=== PATIENT | female | born 1960 | race Caucasian/White ===

== ENCOUNTER → 2023-12-08 08:11 | Outpatient (REF) | payer MEDICARE, OTHER, SELFPAY | LOC: WDC 08:11 | PROVIDERS: ATTENDING PHYSICIAN Obstetrics & Gynecology; FAMILY PHYSICIAN Family Medicine | DX: Z12.31 Encounter for screening mammogram for malignant neoplasm of breast (principal) | CPT/HCPCS: 77063; 77067 ==

== ENCOUNTER 2024-01-13 07:59 | Emergency (ER) | payer MEDICARE, OTHER, SELFPAY ==
[2024-01-13 08:03] VITALS: BP 139/96
--- NOTE | 2024-01-13 08:24 | ED.GENMED ---
History of Present Illness
General
Chief Complaint: Abdominal Symptoms
Source: patient
Exam Limitations: none
Time Seen by Provider: 01/13/24 08:09
Travel History
Have you had any contact with someone who has COVID-19?: No
Do you have any symptoms of coronavirus? Fever > 100 degrees, chills, cough, shortness of breath, sore throat, loss of taste or smell, muscle aches, or headache?: No
History of Present Illness
History of Present Illness:
63-year-old female with history of bof-jhreeqq-qrpmaaryv diabetes hypertension hyperlipidemia presents with ongoing symptoms of epigastric abdominal pain and diffuse abdominal cramps associate with nausea and diarrhea. She denies any blood in the
stool. The pain does not radiate to the back. No prior abdominal surgical history. Pain is not worse with eating. She had outpatient labs recently and demonstrated elevated LFTs. No urinary symptoms. She actually has not vomiting but is quite
nauseous. She notes a 15 pound weight loss
Past History
Past History
ED Past Medical History: Arrthythmia (SVT), HTN, Hypercholesterolemia and NIDDM
ED Past Surgical History: Gynecological (tubal ligation) and Other (Lasik surgery, radius surgery, diabetes, pancreatitis, tubal ligation, hyperlipidemia)
Social History
Tobacco: Former smoker
Alcohol: Occasional
Drug: None
Personal:
Living: with family
Employment: Employed
Phy Exam
Physical Exam
Physical Exam:
General: Uncomfortable appearing female no acute respiratory distress
HEENT: Normocephalic atraumatic mucosa dry sclera anicteric
Heart: Regular rate and rhythm no murmurs
Lungs: Clear no wheeze or rales
Abdomen: Soft tender to the epigastric and slightly to the right upper quadrant. No guarding rebound normal bowel sounds no costovertebral angle tenderness
Extremities: No cyanosis or edema
Skin: Warm, no rashes or lesions.
Course
Orders/Labs/Results
Orders:
Orders
01/13/24 08:23
STOOL [C difficile Antigen & Toxins] Urgent
FAINA Source: Feces/Stool
Specimen Description:
Stool Culture Urgent
FAINA Source: Feces/Stool
Specimen Description:
0.9% Sodium Chloride 1000 ml [Nss] 1,000 ml IV BOLUS
Ondansetron Injectable [Zofran] 4 mg IV NOW STA
US Abdomen Complete/Upper Urgent
Comment:
Reason For Exam: epigastric and RUQ pain
01/13/24 08:41
Complete Blood Count/With Diff Urgent
Comprehensive Metabolic Panel Urgent
Lipase Urgent
01/13/24 09:55
CT Abd/pelvis W Iv Cont Urgent
Comment:
Reason For Exam: abdominal pain, diarrhea
01/13/24 10:41
Famotidine [Pepcid] 20 mg IV NOW STA
Mag Hydrox/Al Hydrox/Simeth [Maalox] 30 ml Phenobarb/Hyoscy/Atropine/Scop [] 10 ml Viscous Lidocaine 2% [Xylocaine Viscous Cup] 10 ml PO NOW
01/13/24 10:50
Mag Hydrox/Al Hydrox/Simeth [Maalox] 30 ml .ROUTE .STK-MED ONE
Phenobarb/Hyoscy/Atropine/Scop [] 10 ml .ROUTE .STK-MED ONE
01/13/24 10:51
Viscous Lidocaine 2% [Xylocaine Viscous Cup] 15 ml .ROUTE .STK-MED ONE
Abnormal Lab Results
01/13/24
08:41
MCH 31.1 H pg
(27.0-31.0)
Potassium 3.4 L mmol/L
(3.5-5.1)
Glucose 175 H mg/dl
(70-99)
Calcium 10.4 H mg/dl
(8.4-10.2)
AST 52 H U/L
(14-36)
ALT 68 H U/L
(0-35)
01/13/24 08:41
01/13/24 08:41
Vital Signs
Initial and Last Documented VS:
Initial Vital Signs
Temp Pulse Resp BP Pulse Ox
98.0 F 105 20 139/96 98
01/13/24 08:03 01/13/24 08:03 01/13/24 08:03 01/13/24 08:03 01/13/24 08:03
Last Documented Vital Signs
Temp Pulse Resp BP Pulse Ox
98.0 F 105 20 123/89 97
01/13/24 08:03 01/13/24 08:03 01/13/24 08:03 01/13/24 10:00 01/13/24 10:01
MDM/Problems Addressed
Differential Diagnosis Includes:
Abdominal pain nausea and diarrhea. Consider viral illness versus peptic ulcer disease versus biliary colic versus enteritis.
Will check labs and ultrasound. Treat with fluids Zofran.
*Critical Care Note
Total Time (30-74mins, 75-104mins- exclusive of procedures): Not Applicable
Update Note
Update Note:
Workup here essentially reveals gallstones but no other acute finding. Patient did receive some symptomatic relief after Pepcid and GI cocktail. Ultrasound and CT were both reviewed. No other acute findings noted. Suspect possible gastritis
versus ulcer. Will prescribe Zofran and antacids. Refer to GI for follow-up
ED Attending Note
-
Portions of this chart may have been created with voice recognition software.� Occasional wrong word or��sound alike� substitutions may have occurred due to the inherent limitations of voice recognition software.
Discharge Plan
Departure
Patient Disposition: Home (Routine Discharge)
Date of Disposition: 01/13/24
Time of Disposition: 12:58
Patient with high blood pressure during this ER visit?: No
Discharge Problem:
Abdominal pain
Instructions: Abdominal Pain
Prescriptions:
New
ondansetron 4 mg tablet,disintegrating
4 mg PO Q8H PRN (Reason: nausea and vomiting) Qty: 10 0RF
omeprazole 40 mg capsule,delayed release(DR/EC)
40 mg PO DAILY 14 Days Qty: 14 0RF
No Action
metformin 500 MG tablet
500 mg PO BID
acetaminophen 325 MG tablet
650 mg PO Q4HPRN PRN (Reason: mild pain, fever)
chlorthalidone 25 MG tablet
25 mg PO DAILY
Patient Comments:
Take in the morning with food
amlodipine 5 MG tablet
5 mg PO DAILY
zolpidem 5 MG tablet
5 mg PO HS
Patient Comments:
Last filled #30 on 05/04/[address] [facility]
ezetimibe 10 MG tablet
10 mg PO DAILY
metoclopramide HCl 10 MG tablet
10 mg PO Q6HPRN PRN (Reason: Gastrointestinal issues) Qty: 15 0RF
Referrals:
Alexandro Toribio MD [Family Provider] -
Activity Restrictions/Additional Instructions:
Continue with clear liquids and a bland diet. Start Zofran and Prilosec as directed. Please follow-up with GI for further evaluation
Interventions
Interventions:
*Risk Screen - Suicide Last Done: 01/13/24 08:03
*General Assessment Last Done: 01/13/24 08:03
*Neglect/Abuse Screening Last Done: 01/13/24 08:03
ED- Fall Risk Assessment Last Done: 01/13/24 09:41
*ED COVID-19 Vaccine History Last Done: 01/13/24 09:41
UT-Nelrvd-Chkiokixyu Assessment Last Done: 01/13/24 09:43
Discharge Date and Time
Print Language: PUERTO RICAN
[2024-01-13] MEDS: NSS 1000 IV (08:41)
[2024-01-13] MEDS: ZOFRAN 4 MG IV (08:42)
[2024-01-13 09:00] LABS: % Eosinophils 1.5 % (0-6); % Immature Granulocytes 0.1 % (0-0.5); % Lymphocytes 30.7 % (20.5-51.1); % Monocytes 4.4 % (1.7-9.3); % Neutrophils 62.3 % (42.2-75.2); Absolute Basophils 0.1 10^3/uL (0-0.2); Absolute Eosinophils 0.1 10^3/uL (0-0.7); Absolute Lymphocytes 2.1 10^3/uL (1.2-3.4); Absolute Monocytes 0.3 10^3/uL (0.1-0.6); Absolute Neutrophils 4.3 10^3/uL (1.4-6.5); Hematocrit 43.6 % (37.0-47.0); Mean Corp Hgb Conc. 34.4 g/dL (33.0-37.0); Mean Corpuscular Hgb 31.1 pg (27.0-31.0); Mean Corpuscular Volume 90.3 fL (81.0-99.0); Mean Platelet Volume 10.1 fL (7.4-10.4); Nucleated Red Blood Cells % 0 %; Platelet Count 346 10^3/uL (130-400); Red Blood Cell Count 4.83 10^6/uL (4.20-5.40); Red Cell Dist. Width 12.7 % (11.5-14.5); White Blood Cell Count 6.9 10^3/uL (4.8-10.8)
[2024-01-13 09:12] LABS: ALT (SGPT) 68 U/L (0-35); AST (SGOT) 52 U/L (14-36); Albumin 4.8 g/dl (3.5-5.0); Alkaline Phosphatase 82 U/L (38-126); Blood Urea Nitrogen 15 mg/dl (7-17); Calcium 10.4 mg/dl (8.4-10.2); Carbon Dioxide 27 mmol/L (22-30); Chloride 100 mmol/L (98-107); Glucose 175 mg/dl (70-99); Lipase 178 U/L (23-300); Potassium 3.4 mmol/L (3.5-5.1); Sodium 140 mmol/L (135-145); Total Bilirubin 0.6 mg/dl (0.2-1.3); Total Protein 7.3 g/dl (6.3-8.2); eGFR > 60.00
[2024-01-13 09:41] VITALS: BMI 30.6
[2024-01-13 09:42] VITALS: BP 146/87
[2024-01-13 10:00] VITALS: BP 123/89
[2024-01-13] MEDS: PEPCID 20 MG IV (10:53)
[2024-01-13] MEDS: MAALOX 30 PO (10:53)
[2024-01-13 13:34] VITALS: BP 123/89
== END 2024-01-13 13:36 | disposition home or self-care (01) ==
LOC: EMR 07:59
PROVIDERS: Physician Assistant; EMERGENCY PHYSICIAN Student in an Organized Health Care Education/Training Program; FAMILY PHYSICIAN Family Medicine
DX: R10.13 Epigastric pain (principal); E11.9 Type 2 diabetes mellitus without complications; I10 Essential (primary) hypertension; E78.00 Pure hypercholesterolemia, unspecified
CPT/HCPCS: 99285; 96374; 96375; 96361; 74177; 76700; 80053; 83690; 85025; Q9967

== ENCOUNTER 2024-05-08 19:18 | Inpatient (IN) | payer MEDICARE, OTHER, SELFPAY ==
[2024-05-08] VITALS (13 sets, daily range): BP systolic 118–163; BP diastolic 68–107; BMI 31.7; BMI 32.7
[2024-05-08 14:56] LABS: % Basophils 0.6 % (0-2); % Eosinophils 0.5 % (0-6); % Immature Granulocytes 0.3 % (0-0.5); % Lymphocytes 18.2 % (20.5-51.1); % Neutrophils 75.4 % (42.2-75.2); Absolute Basophils 0.1 10^3/uL (0-0.2); Absolute Eosinophils 0.1 10^3/uL (0-0.7); Absolute Lymphocytes 2.8 10^3/uL (1.2-3.4); Absolute Monocytes 0.8 10^3/uL (0.1-0.6); Absolute Neutrophils 11.8 10^3/uL (1.4-6.5); Hematocrit 41.9 % (37.0-47.0); Hemoglobin 14.8 g/dL (12.0-16.0); Mean Corp Hgb Conc. 35.3 g/dL (33.0-37.0); Mean Corpuscular Hgb 30.5 pg (27.0-31.0); Mean Corpuscular Volume 86.4 fL (81.0-99.0); Nucleated Red Blood Cells % 0 %; Platelet Count 331 10^3/uL (130-400); Red Blood Cell Count 4.85 10^6/uL (4.20-5.40); Red Cell Dist. Width 12.7 % (11.5-14.5); Urine Albumin Negative (Neg - Trace); Urine Bilirubin Negative (Negative); Urine Character Clear (Clear); Urine Color Yellow; Urine Glucose Negative (Negative); Urine Ketone 1+ (Negative); Urine Leukocyte Trace (Negative); Urine Nitrite Negative (Negative); Urine Occult Blood Trace (Negative); Urine Specific Gravity 1.015 (<1.030); Urine Urobilinogen Negative (Neg - 1+); White Blood Cell Count 15.6 10^3/uL (4.8-10.8)
[2024-05-08 15:17] LABS: ALT (SGPT) 33 U/L (0-35); AST (SGOT) 34 U/L (14-36); Albumin 5.3 g/dl (3.5-5.0); Alkaline Phosphatase 107 U/L (38-126); Calcium 10.9 mg/dl (8.4-10.2); Carbon Dioxide 26 mmol/L (22-30); Chloride 99 mmol/L (98-107); Glucose 130 mg/dl (70-99); Lipase 110 U/L (23-300); Potassium 4.4 mmol/L (3.5-5.1); Sodium 141 mmol/L (135-145); Total Bilirubin 0.7 mg/dl (0.2-1.3); Total Protein 7.7 g/dl (6.3-8.2)
[2024-05-08 15:30] LABS: Blood Urea Nitrogen 12 mg/dl (7-17); eGFR > 60.00
[2024-05-08 15:33] LABS: Urine Urothelial Cell 0-2 /LPF (FEW)
[2024-05-08 15:34] LABS: Urine Bacteria Few (Negative); Urine Calcium Oxalate Crystals Present
--- NOTE | 2024-05-08 16:47 | ED.GENMED ---
History of Present Illness
<Skyler Nix MD, Resident - Last Filed: 05/08/24 20:03>
General
Chief Complaint: Abdominal Pain
Source: patient and records
Time Seen by Provider: 05/08/24 16:13
Travel History
Have you traveled to any high risk areas for coronavirus over the past 14 days?: No
Have you had any contact with someone who has COVID-19?: No
Do you have any symptoms of coronavirus? Fever > 100 degrees, chills, cough, shortness of breath, sore throat, loss of taste or smell, muscle aches, or headache?: No
History of Present Illness
History of Present Illness:
Juana Mederos, 63-year-old female with a history of diverticulitis, cholelithiasis, nephrolithiasis s/p lithotripsy, fatty liver disease and type II diabetes mellitus, has has lower and mid abdominal pain since this morning. The pain came on when
she woke up and continued to progress. It is a dull and constant pain that does not radiate. With nausea but no vomiting. No diarrhea or constipation. Bowel movements have not changed and denies overt blood or mucus in stool. Denies burning
micturition, overt blood in urine, frequency, urgency, back pain or difficulty urinating. She has had recurrent abdominal pain over the past few years with no clear explanation for her pain. She has a consultation with gastroenterology later this
month for this. Denies any other changes to her health or recent illnesses.
Past History
<Skyler Nix MD, Resident - Last Filed: 05/08/24 20:03>
Past History
ED Past Medical History: Arrthythmia (SVT), HTN, Hypercholesterolemia, NIDDM and Other (diverticulitis; nephrolithiasis; cholelithiasis)
ED Past Surgical History: Other (Lasik surgery, radius surgery, tubal ligation, lithotripsy; ureteroscopy)
Social History
Tobacco: Former smoker
Alcohol: Occasional
Drug: None
Personal:
Living: with family
Employment: Employed
Review of Systems
<Skyler Nix MD, Resident - Last Filed: 05/08/24 20:03>
Review of Systems
All Other Systems: Not applicable
Constitutional: Reports chills
EENT: Reports no symptoms
Respiratory: Reports no symptoms
Cardiac: Reports no symptoms
ABD/GI: Reports abdominal pain and nausea; Denies vomiting, diarrhea, constipated, bloody stools, black stools or anorexia
: Reports no symptoms
Musculoskeletal: Reports no symptoms
Skin: Reports no symptoms
Neurological: Reports no symptoms
Endocrine: Reports no symptoms
Hematologic/Lymphatic: Reports no symptoms
Psychiatric: Reports no symptoms
Phy Exam
<Skyler Nix MD, Resident - Last Filed: 05/08/24 20:03>
General Physical Exam
General Presentation: well appearing and no apparent distress
General Skin: warm and dry
General Habitus: normal
General Mental: alert
General Hydration: appears well hydrated
ENT Exam
ENT Exam: EOMI, pharynx normal, neck supple and normocephalic
Eye Exam
Eye Exam: PERRL, cornea clear and conjunctiva normal
Cardiovascular Exam
Cardiovascular Exam: regular rate/rhythm, no edema, no murmur and normal peripheral pulses
Pulmonary Exam
Pulmonary Exam: lungs clear, no respiratory distress, no rales, no crackles, no rhonchi, no stridor, no wheezing and no cough
Gastrointestinal Exam
Gastrointestinal Exam: soft, no organomegaly, no pulsatile mass, non distended and tender (mid and lower abdominal)
Neurological Exam
Neurological Exam: alert, oriented x3, no motor deficits and speech normal
Musculoskeletal Exam
Musculoskeletal Exam: full ROM and no edema
Skin Exam
Skin Exam: normal color, warm/dry, no rash and no petechia
Psychiatric Exam
Psychiatric Exam: normal mood/affect
Course
<Skyler iNx MD, Resident - Last Filed: 05/08/24 20:03>
Orders/Labs/Results
Orders:
Orders
05/08/24 14:37
Electrocardiogram (*1) Urgent
Reason for Study: Abdominal Pain
EKG- Treatment ONCE
05/08/24 14:50
Complete Blood Count/With Diff Urgent
Comprehensive Metabolic Panel Urgent
Lipase Urgent
Urinalysis Reflex To Culture Urgent
Date Specimen was Collected: 05/08/24
Time Specimen was Collected: 14:37
Urine Microscopic Reflex Cult Urgent
05/08/24 16:43
CT Abd/pelvis W Iv Cont Urgent
Comment:
Reason For Exam: diffuse abdominal pain; hx of diverticulitis
Ketorolac [Toradol] 15 mg IV NOW STA
Ondansetron Injectable [Zofran] 4 mg IV NOW STA
05/08/24 16:45
0.9% Sodium Chloride 1000 ml [Nss] 1,000 ml IV BOLUS
05/08/24 17:38
Consult Surgery [SURGICAL CONSULT] Urgent
Consulting Provider: Mansoor Gardiner
Was physician already notified: Yes
HYDROmorphone [Dilaudid] 0.5 mg IV NOW STA
05/08/24 18:00
CefTRIAXone [Rocephin] 1,000 mg IV Q24H
MetroNIDAZOLE 500 MG/100 ML [Flagyl 500 mg] 100 ml IV Q8H
05/08/24 18:20
CefTRIAXone [Rocephin] 1,000 mg IV NOW STA
MetroNIDAZOLE 500 MG/100 ML [Flagyl 500 mg] 100 ml IV NOW
05/08/24 18:26
Admit/Transfer Patient As Directed
Co-Sign Provider:
Level of Care: Inpatient admission
Assign to:: Medical/Surgical
Physician / Group: Carmen Anderson
Diagnosis: acute appendicitis
Reason for Hospitalization: acute appendicitis
Expected length of stay greater than two midnights?: Yes
ELOS- Estimated Length of Stay in days: 3
I certify the patient meets the requirements for IP care: Yes
PRN Pain Medication Management As Directed
May give lesser potent ordered pain med per pt: Yes
preference::
Protocol:: Medication orders for pain may be administered in a
manner that supports deferring to patient preference
when the pt is:
- Requesting an ordered lesser potent pain medication.
Least to most potent pain medications are defined
as: acetaminophen < NSAID < tramadol < opioids
(morphine, oxycodone, hydromorphone).
- Requesting a lesser dose of the same medication IF
ORDERED.
- Requesting a less intrusive route of administration
if both routes are prescribed by the provider (PO <
IV).
05/08/24 18:27
Code Status As Directed
Resuscitation Status: Do not resuscitate
Reached after discussion with pt or family/Healthcare POA: Yes
DNR Bracelet Application ONCE
05/08/24 18:42
ABO2 Urgent
BBK Wristband Number:
Associate notified that ABO2 has been ordered: [id number]
Date: 05/08/24
Time: 19:22
Small Brake Form Operator ID: [id number]
INR [Prothrombin Time] Urgent
Abnormal Lab Results
05/08/24
14:50
WBC 15.6 H 10^3/uL
(4.8-10.8)
Absolute Neuts (auto) 11.8 H 10^3/uL
(1.4-6.5)
Absolute Monos (auto) 0.8 H 10^3/uL
(0.1-0.6)
Neutrophils % 75.4 H %
(42.2-75.2)
Lymphocytes % 18.2 L %
(20.5-51.1)
Glucose 130 H mg/dl
(70-99)
Calcium 10.9 H mg/dl
(8.4-10.2)
Albumin 5.3 H g/dl
(3.5-5.0)
Urine Ketones 1+ A
(Negative)
Ur Occult Blood Reflex Trace A
(Negative)
Leukocyte Esterase Rfl Trace A
(Negative)
Urine RBC 3-6 A /HPF
(0-2)
Urine Bacteria (Reflex) Few A
(Negative)
05/08/24 14:50
05/08/24 14:50
Vital Signs
Initial and Last Documented VS:
Initial Vital Signs
Temp Pulse Resp BP Pulse Ox
97.7 F 87 16 163/107 99
05/08/24 14:34 05/08/24 14:34 05/08/24 14:34 05/08/24 14:34 05/08/24 14:34
Last Documented Vital Signs
Temp Pulse Resp BP Pulse Ox
97.7 F 87 16 127/86 96
05/08/24 14:34 05/08/24 14:34 05/08/24 14:34 05/08/24 19:00 05/08/24 19:30
<Cathryn Garcia MD - Last Filed: 05/08/24 16:50>
Orders/Labs/Results
Orders:
Orders
05/08/24 14:37
Electrocardiogram (*1) Urgent
Reason for Study: Abdominal Pain
EKG- Treatment ONCE
05/08/24 14:50
Complete Blood Count/With Diff Urgent
Comprehensive Metabolic Panel Urgent
Lipase Urgent
Urinalysis Reflex To Culture Urgent
Date Specimen was Collected: 05/08/24
Time Specimen was Collected: 14:37
Urine Microscopic Reflex Cult Urgent
05/08/24 16:43
CT Abd/pelvis W Iv Cont Urgent
Comment:
Reason For Exam: diffuse abdominal pain; hx of diverticulitis
Ketorolac [Toradol] 15 mg IV NOW STA
Ondansetron Injectable [Zofran] 4 mg IV NOW STA
05/08/24 16:45
0.9% Sodium Chloride 1000 ml [Nss] 1,000 ml IV BOLUS
05/08/24 17:38
Consult Surgery [SURGICAL CONSULT] Urgent
Consulting Provider: Mansoor Gardiner
Was physician already notified: Yes
HYDROmorphone [Dilaudid] 0.5 mg IV NOW STA
05/08/24 18:00
CefTRIAXone [Rocephin] 1,000 mg IV Q24H
MetroNIDAZOLE 500 MG/100 ML [Flagyl 500 mg] 100 ml IV Q8H
05/08/24 18:20
CefTRIAXone [Rocephin] 1,000 mg IV NOW STA
MetroNIDAZOLE 500 MG/100 ML [Flagyl 500 mg] 100 ml IV NOW
05/08/24 18:26
Admit/Transfer Patient As Directed
Co-Sign Provider:
Level of Care: Inpatient admission
Assign to:: Medical/Surgical
Physician / Group: Carmen Anderson
Diagnosis: acute appendicitis
Reason for Hospitalization: acute appendicitis
Expected length of stay greater than two midnights?: Yes
ELOS- Estimated Length of Stay in days: 3
I certify the patient meets the requirements for IP care: Yes
PRN Pain Medication Management As Directed
May give lesser potent ordered pain med per pt: Yes
preference::
Protocol:: Medication orders for pain may be administered in a
manner that supports deferring to patient preference
when the pt is:
- Requesting an ordered lesser potent pain medication.
Least to most potent pain medications are defined
as: acetaminophen < NSAID < tramadol < opioids
(morphine, oxycodone, hydromorphone).
- Requesting a lesser dose of the same medication IF
ORDERED.
- Requesting a less intrusive route of administration
if both routes are prescribed by the provider (PO <
IV).
05/08/24 18:27
Code Status As Directed
Resuscitation Status: Do not resuscitate
Reached after discussion with pt or family/Healthcare POA: Yes
DNR Bracelet Application ONCE
05/08/24 18:42
ABO2 Urgent
BBK Wristband Number:
Associate notified that ABO2 has been ordered: [id number]
Date: 05/08/24
Time: 19:22
Small Brake Form Operator ID: [id number]
INR [Prothrombin Time] Urgent
Abnormal Lab Results
05/08/24
14:50
WBC 15.6 H 10^3/uL
(4.8-10.8)
Absolute Neuts (auto) 11.8 H 10^3/uL
(1.4-6.5)
Absolute Monos (auto) 0.8 H 10^3/uL
(0.1-0.6)
Neutrophils % 75.4 H %
(42.2-75.2)
Lymphocytes % 18.2 L %
(20.5-51.1)
Glucose 130 H mg/dl
(70-99)
Calcium 10.9 H mg/dl
(8.4-10.2)
Albumin 5.3 H g/dl
(3.5-5.0)
Urine Ketones 1+ A
(Negative)
Ur Occult Blood Reflex Trace A
(Negative)
Leukocyte Esterase Rfl Trace A
(Negative)
Urine RBC 3-6 A /HPF
(0-2)
Urine Bacteria (Reflex) Few A
(Negative)
05/08/24 14:50
05/08/24 14:50
Vital Signs
Initial and Last Documented VS:
Initial Vital Signs
Temp Pulse Resp BP Pulse Ox
97.7 F 87 16 163/107 99
05/08/24 14:34 05/08/24 14:34 05/08/24 14:34 05/08/24 14:34 05/08/24 14:34
Last Documented Vital Signs
Temp Pulse Resp BP Pulse Ox
97.7 F 87 16 127/86 96
05/08/24 14:34 05/08/24 14:34 05/08/24 14:34 05/08/24 19:00 05/08/24 19:30
<Skyler Nix MD, Resident - Last Filed: 05/08/24 20:03>
MDM/Problems Addressed
MDM/Problems Addressed:
CT AP shows acute uncomplicated appendicitis. Will admit and consult general surgery.
<Skyler Nix MD, Resident - Last Filed: 05/08/24 20:03>
*Critical Care Note
Total Time (30-74mins, 75-104mins- exclusive of procedures): Not Applicable
ED Attending Note
<Skyler Nix MD, Resident - Last Filed: 05/08/24 20:03>
-
Portions of this chart may have been created with voice recognition software.� Occasional wrong word or��sound alike� substitutions may have occurred due to the inherent limitations of voice recognition software.
<Cathryn Garcia MD - Last Filed: 05/08/24 16:50>
ED Attending Note
Patient seen and examined by attending physician: Yes
I performed a history and physical exam of patient and discussed management with resident, I reviewed resident's note and agree with documented findings and plan of care.: Yes
ED Attending Note:
Patient appears slightly flushed and anxious, however, she is nontoxic and conversational. Patient complains of mid to lower abdominal pain. On exam, she has periumbilical tenderness and bilateral lower abdominal tenderness. Her heart sounds
regular and her lungs are clear.
Discharge Plan
Departure
Patient Disposition: Admit
Date of Disposition: 05/08/24
Time of Disposition: 17:37
Presentation/result/management discussed w/ accepting MD/DO: Hospitalist
Patient with high blood pressure during this ER visit?: Yes
Discharge Problem:
Acute appendicitis
Interventions
Interventions:
*Risk Screen - Suicide Last Done: 05/08/24 14:34
*Neglect/Abuse Screening Last Done: 05/08/24 14:34
*ED COVID-19 Vaccine History Last Done: 05/08/24 19:55
*Nursing Disposition Last Done: 05/08/24 19:55
KP-Vmfffu-Ovubufjvky Assessment Last Done: 05/08/24 16:25
Discharge Date and Time
Discharge Date/Time: 05/08/24 19:56
[2024-05-08] MEDS: NSS 1000 IV ×2 (17:10→22:20)
[2024-05-08] MEDS: TORADOL 15 MG IV (17:10)
[2024-05-08] MEDS: ZOFRAN 4 MG IV (17:10)
[2024-05-08] MEDS: DILAUDID 0.5 MG IV (17:45)
--- NOTE | 2024-05-08 17:51 | HPS.HSE ---
Family Physician
-
Family Physician: Alexandro Toribio
Chief Complaint
-
abdominal pain
History of Present Illness
Ms. Juana Mederos is a 63 yo woman with hx nephrolithiasis, fatty liver, DM II presents to the ER with lower abdominal pain.
Pain started earlier today stretching across lower abdomen that was very severe. No fevers. + nausea, no vomiting.
She also complains of upper abdominal pain that she has been experiencing over past several months with negative work-up. Has been eating less and lost weight. Pain not associated with eating. Has plans to follow up with GI later this month.
No chest pain or shortness of breath.
Medical History
Past Medical History
Past Medical History: Reports HTN, Hypercholesterolemia, NIDDM and Other (nephrolithiasis )
Past Surgical History: Reports Urological
Social History
Tobacco: Former Smoker
Alcohol: Occasional
Family History
Family History: Not pertinent
Allergies / Home Medications
Allergies reflects when Allergies were last updated in [employer].
Home Medications with original date entered in [employer]
Allergy/Medication List:
Allergies
Allergy/AdvReac Type Severity Reaction Status Date / Time
acetaminophen [From Percocet] Allergy Nausea Verified 05/08/24 14:36
diltiazem [From Cardizem] Allergy dizzy Verified 05/08/24 14:36
latex Allergy severe Verified 05/08/24 14:36
itching,
swelling,
redness
metoprolol Allergy dizzy Verified 05/08/24 14:36
morphine Allergy vomit Verified 05/08/24 14:36
oxycodone [From Percocet] Allergy Nausea Verified 05/08/24 14:36
Ytthbjy-MOP-DdQ Reductase Allergy muscle Verified 05/08/24 14:36
Inhibitor cramping
[Riyuxfe-Fdn-Ziw Reductase
Inhibitor]
Home Medications
metformin 500 mg tablet 500 mg PO BID 06/14/19
acetaminophen 325 mg tablet 650 mg PO Q4HPRN PRN mild pain, fever 05/15/20
amlodipine 5 mg tablet 5 mg PO DAILY 05/15/20
chlorthalidone 25 mg tablet 25 mg PO DAILY 05/15/20
ezetimibe 10 mg tablet 10 mg PO DAILY 05/15/20
zolpidem 5 mg tablet 5 mg PO HS 05/15/20
metoclopramide HCl 10 mg tablet 10 mg PO Q6HPRN PRN Gastrointestinal issues #15 tabs 06/10/21
omeprazole 40 mg capsule,delayed release 40 mg PO DAILY 14 days #14 caps 01/13/24
ondansetron 4 mg disintegrating tablet 4 mg PO Q8H PRN nausea and vomiting #10 tabs 01/13/24
awaiting for med rec to be updated
Review of Systems
-
History Source: Patient
A 12 point ROS was completed and negative except as noted: Yes
Physical Exam
Vital Signs
Vital Signs
Temp Pulse Resp BP Pulse Ox
97.7 F 87 16 152/81 99
05/08/24 14:34 05/08/24 14:34 05/08/24 14:34 05/08/24 16:19 05/08/24 16:20
Physical Exam
General: No Apparent Distress
HEENT: PERRLA
Respiratory: Clear; No Wheezes
Cardiac: S1/S2 and Regular Rhythm
GI: Soft and Non Tender
Musculoskeletal: No Edema
Skin: Warm and Dry; No Rash
Neuro: AO x 3
Psych: Calm
Laboratory Results
-
05/08/24 14:50
05/08/24 14:50
Laboratory Results
Total Bilirubin 0.7 mg/dl (0.2-1.3) 05/08/24 14:50
AST 34 U/L (14-36) 05/08/24 14:50
ALT 33 U/L (0-35) 05/08/24 14:50
Alkaline Phosphatase 107 U/L (38-126) 05/08/24 14:50
Lipase 110 U/L (23-300) 05/08/24 14:50
Data Reviewed
-
Diagnostic Radiology: Report Reviewed by me
Lab Data: Labs Reviewed by me
Impression/Plan
-
Ms. Juana Mederos is a 63 yo woman with hx nephrolithiasis, fatty liver, DM II presents to the ER with lower abdominal pain.
Triage VS: T 97.7, P 87, RR 16, BP 163/107, SpO2 99%
LABS: WBC 15.6, Hg 14.8, PLT 331, Na 141, K+ 4.4, CO2 26, Cr 0.6, Glucose 130, Ca 10.9, liver enzymes WNL, lipase 110
CT A/P
IMPRESSION:
1. Acute uncomplicated appendicitis.
EKG: NSR @ 74, PAC's, PVC, non specific T wave changes inferior leads
MAR: Dilaudid, Toradol, 1L IVF, IV Zofran
Acute Appendicitis
-admit to medicine, Dr. Gardiner aware of patient and plan is OR this evening
-patient medically cleared, no active cardiopulmonary symptoms and benefits of surgery outweigh risks. she is not on blood thinners
-start IV Ceftriaxone/Flagyl
-NPO
-IVF
-pain control
-obtain INR, type and screen
Chronic abdominal pain
-patient has follow up with GI later this month
Essential Hypertension
-hold CREDIT COLLECTION SPECIALIST amlodipine
Hyperlipidemia
-hold CREDIT COLLECTION SPECIALIST Ezetimibe
NIDDM
-she is on Metformin IG BID
-ISS low
DNR - patient confirmed this wish on admission
DVT PPx - SCD
[2024-05-08] MEDS: ROCEPHIN 1000 MG IV (18:32)
[2024-05-08] MEDS: FLAGYL 500 MG 100 IV (18:41)
[2024-05-08 19:16] LABS: INR 1.14; PT 14.4 Sec (11.4-14.6)
--- NOTE | 2024-05-08 19:59 | CON.CRS ---
Consultation
-
Date/Time Consultation Requested: 05/08/24 @ 17:38
Date/Time Consultation Performed: 05/08/24 @ 19:30
Requesting Provider: Skyler Nix MD
Performing Provider: Kai Gardiner MD
Reason for Consultation: Acute appendicitis
Medical History
-
Chief Complaint: Abdominal pain
History of Present Illness:
63-year-old female with diabetes type 2, history of kidney stones, fatty liver and chronic abdominal pain who presents to the emergency room earlier today with abdominal pain that began yesterday. Her workup in the past has included CAT scans with
no identifiable source of her pain. She states that this pain is worse and more severe. At the present is on her lower abdomen. She has had some nausea but no vomiting. There are no change in bowel habits or urinary symptoms.
Past Medical History
Past Medical History: Arrhythmias (SVT), HTN, Hypercholesterolemia, NIDDM and Other (Nephrolithiasis, diverticulitis)
Past Surgical History: Gynecological (Tubal ligation), Orthopedic and Urological (Lithotripsy)
Social History
Tobacco: Former Smoker
Alcohol: Occasional
Personal:
Living: With Family
Family History
Family History: Reviewed & Not Pertinent
Allergies / Home Medications
Allergy/AdvReac Type Severity Reaction Status Date / Time
acetaminophen [From Percocet] Allergy Nausea Verified 05/08/24 14:36
diltiazem [From Cardizem] Allergy dizzy Verified 05/08/24 14:36
latex Allergy severe Verified 05/08/24 14:36
itching,
swelling,
redness
metoprolol Allergy dizzy Verified 05/08/24 14:36
morphine Allergy vomit Verified 05/08/24 14:36
oxycodone [From Percocet] Allergy Nausea Verified 05/08/24 14:36
Xulbxrt-ZII-BzG Reductase Allergy muscle Verified 05/08/24 14:36
Inhibitor cramping
[Jfzzmiw-Riz-Htu Reductase
Inhibitor]
�Medication �Instructions �Recorded �Confirmed �Type
metformin 500 mg tablet 500 mg PO BID 01/15/19 06/10/21 History
acetaminophen 325 mg tablet 650 mg PO Q4HPRN PRN mild pain, 05/15/20 06/10/21 History
fever
amlodipine 5 mg tablet 5 mg PO DAILY 05/15/20 06/10/21 History
chlorthalidone 25 mg tablet 25 mg PO DAILY 05/15/20 06/10/21 History
ezetimibe 10 mg tablet 10 mg PO DAILY 05/15/20 06/10/21 History
zolpidem 5 mg tablet 5 mg PO HS 05/15/20 06/10/21 History
metoclopramide HCl 10 mg tablet 10 mg PO Q6HPRN PRN 06/10/21 Rx
Gastrointestinal issues #15 tabs
omeprazole 40 mg capsule,delayed 40 mg PO DAILY 14 days #14 caps 01/13/24 Rx
release
ondansetron 4 mg disintegrating 4 mg PO Q8H PRN nausea and 01/13/24 Rx
tablet vomiting #10 tabs
Review of Systems
-
History Source: Patient
All other systems: Negative unless noted
A 10 point review of systems was completed, and was negative except as per HPI.
Physical Exam
Vital Signs
Temp 97.7 F 05/08/24 14:34
Pulse 87 05/08/24 14:34
Resp Rate 16 05/08/24 14:34
Blood pressure 127/86 05/08/24 19:00
SaO2 96 05/08/24 19:30
05/07/24 05/08/24 05/09/24
06:59 06:59 06:59
Actual Weight 83.6 kg
Body Mass Index (BMI) 31.7
Lab Results / Allergies
05/08/24 14:50
05/08/24 14:50
WBC 15.6 10^3/uL (4.8-10.8) H 05/08/24 14:50
Hgb 14.8 g/dL (12.0-16.0) 05/08/24 14:50
Hct 41.9 % (37.0-47.0) 05/08/24 14:50
Plt Count 331 10^3/uL (130-400) 05/08/24 14:50
Abs Immat Gran (auto) 0.0 10^3/uL (0-0.05) 05/08/24 14:50
Neutrophils % 75.4 % (42.2-75.2) H 05/08/24 14:50
Allergy/AdvReac Type Severity Reaction Status Date / Time
acetaminophen [From Percocet] Allergy Nausea Verified 05/08/24 14:36
diltiazem [From Cardizem] Allergy dizzy Verified 05/08/24 14:36
latex Allergy severe Verified 05/08/24 14:36
itching,
swelling,
redness
metoprolol Allergy dizzy Verified 05/08/24 14:36
morphine Allergy vomit Verified 05/08/24 14:36
oxycodone [From Percocet] Allergy Nausea Verified 05/08/24 14:36
Lnjxwcg-QPT-QwU Reductase Allergy muscle Verified 05/08/24 14:36
Inhibitor cramping
[Yfcujav-Uqc-Soa Reductase
Inhibitor]
Physical Exam
General: Well Developed, Well Nourished and No Apparent Distress
HEENT: Anicteric
Respiratory: Clear
Cardiac: Regular Rhythm
GI: Soft and Tender (The right lower quadrant and suprapubic region without peritoneal signs.)
Musculoskeletal: No Edema
Skin: Warm
Neuro: Awake and Alert
Psych: Calm
Data Reviewed
-
CT Scan: Image Personally Visualized and interpreted, Report Reviewed by me, Discussed with Patient and Discussed with Family
Labs: Labs Reviewed by me, Discussed with Patient and Discussed with Family
Assessment / Plan
-
Acute appendicitis
I reviewed the current findings with the patient and her I discussed the treatment options. Without surgery is a risk of perforation. Treating nonoperatively is not indicated in patients greater than 55 due to presence of possible tumor to
the appendix. We discussed the risks and benefits of each and she wishes to undergo appendectomy. We discussed laparoscopic versus open surgery with the risk and benefits of each and the plan is for laparoscopic appendectomy. I reviewed the
procedure as well as typical recovery and functional results. Risks of surgery include, but are not limited to, bleeding, infection, adhesions, hernias, injury other structures, DVT, cardiopulmonary complications, fistula, and the risk of
anesthesia. All questions answered and arrangements are in progress for the operating room. Informed consent obtained.
--- NOTE | 2024-05-08 21:11 | W.IMMPOSTOP ---
Surgical Immed Post Op Note
-
Primary Surgeon: Kai Gardiner MD
Pre-op Diagnosis: Acute appendicitis
Post-op Diagnosis: Same
Procedure Performed: Laparoscopic appendectomy
Anesthesia Type: GET
Specimen / Cultures: Appendix
Estimated Blood Loss: 5cc
Complications: None
Operative Findings: Acutely inflamed, nonperforated appendix
Patient's updated in the waiting room
[2024-05-08 21:19] LABS: Glucose - Point of Care 133 mg/dl (70-99)
[2024-05-09] MEDS: ULTRAM 50 MG PO ×2 (00:36→09:12)
[2024-05-09 00:45] VITALS: BP 137/94
[2024-05-09] MEDS: FLAGYL 500 MG 100 IV ×2 (02:04→09:13)
[2024-05-09 03:40] VITALS: BP 136/94
[2024-05-09 05:26] LABS: % Basophils 0.1 % (0-2); % Immature Granulocytes 0.3 % (0-0.5); % Lymphocytes 7.1 % (20.5-51.1); % Monocytes 2.9 % (1.7-9.3); % Neutrophils 89.6 % (42.2-75.2); Absolute Lymphocytes 0.9 10^3/uL (1.2-3.4); Absolute Monocytes 0.4 10^3/uL (0.1-0.6); Absolute Neutrophils 11.9 10^3/uL (1.4-6.5); Hematocrit 37.2 % (37.0-47.0); Hemoglobin 13.1 g/dL (12.0-16.0); Mean Corp Hgb Conc. 35.2 g/dL (33.0-37.0); Mean Corpuscular Hgb 30.8 pg (27.0-31.0); Mean Corpuscular Volume 87.3 fL (81.0-99.0); Mean Platelet Volume 9.7 fL (7.4-10.4); Nucleated Red Blood Cells % 0 %; Platelet Count 325 10^3/uL (130-400); Red Blood Cell Count 4.26 10^6/uL (4.20-5.40); White Blood Cell Count 13.3 10^3/uL (4.8-10.8)
[2024-05-09 05:54] LABS: ALT (SGPT) 25 U/L (0-35); AST (SGOT) 21 U/L (14-36); Alkaline Phosphatase 67 U/L (38-126); Blood Urea Nitrogen 8 mg/dl (7-17); Calcium 8.7 mg/dl (8.4-10.2); Carbon Dioxide 24 mmol/L (22-30); Chloride 104 mmol/L (98-107); Estimated Creatinine Clearance 96 ml/min; Glucose 200 mg/dl (70-99); Magnesium 1.9 mg/dl (1.6-2.3); Potassium 3.8 mmol/L (3.5-5.1); Sodium 141 mmol/L (135-145); Total Bilirubin 0.3 mg/dl (0.2-1.3); Total Protein 6.2 g/dl (6.3-8.2); eGFR > 60.00
[2024-05-09 07:00] VITALS: BP 136/61
[2024-05-09] MEDS: NSS 1000 IV (09:13)
--- NOTE | 2024-05-09 10:27 | W.PN.CRS1 ---
Today's Communication / Plan
-
regular diet
discharge
Assessment/Plan
-
Postop day #1 appendectomy
-Advance diet to regular
-Out of bed as tolerated
-Antibiotics are not needed on discharge
-Tylenol and ibuprofen for pain.
-Follow-up in the office with Dr. Gardiner in 2 weeks for postop appointment. Okay for discharge from our perspective.
Subjective Data
Procedure
05/08- appendectomy
Subjective Data
Date of Service: May 09, 2024
Patient states her pain is controlled. She is no nausea or vomiting. She is hungry. She has no complaints.
Objective Data
-
Vital Signs
Temp Pulse Resp BP Pulse Ox
97.5 F 58 16 136/61 98
05/09/24 07:00 05/09/24 07:00 05/09/24 07:00 05/09/24 07:00 05/09/24 07:00
Intake & Output
05/08/24 05/09/24 05/10/24
06:59 06:59 06:59
Intake Total 1035 / 1035
Balance 1035 / 1035
Intake:
Oral fluids 960 / 960
IV fluids (Total) 75 / 75
normosol 75 / 75
Other:
Number of approximated LARGE 1
amounts of urine
Lab Results
05/09/24 04:40
05/09/24 04:40
Physical Exam
-
General: No Acute Distress and AOx3
Abdomen: Soft, Non Distended and Tender (Mild over incision sites)
Skin: Warm and Dry
Incision: Clear, Dry, Intact
--- NOTE | 2024-05-09 10:33 | W.PN.HOSP.TC ---
Today's Communication/Plan
-
OK for DC today
Assessment / Plan
Assessment / Plan
Ms. Juana Mederos is a 63 yo woman with hx nephrolithiasis, fatty liver, DM II presents to the ER with lower abdominal pain.
CT A/P
IMPRESSION:
1. Acute uncomplicated appendicitis.
Acute Appendicitis
-s/p lap appendectomy on 05/08
-doing well post-op, stop antibiotics, OK for DC
-tolerating regular diet
Chronic abdominal pain
-patient has follow up with GI later this month
Essential Hypertension
-resume meds on DC
Hyperlipidemia
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
NIDDM
-she is on Metformin IG BID --> hold for 48 hours post contrast
-ISS low
DNR - patient confirmed this wish on admission
DVT PPx - SCD
Anticipated Discharge: Today
Subjective/Interval History
-
Date of Service: May 09, 2024
feeling well and wants to go home
had tramadol this morning that helped with pain
Objective Data
-
Labs:
Laboratory Results
05/09/24
04:40
WBC 13.3 H
Hgb 13.1
Hct 37.2
Plt Count 325
Sodium 141
Potassium 3.8
Chloride 104
Carbon Dioxide 24
BUN 8
Creatinine 0.5 L
Glucose 200 H
Calcium 8.7 D
Total Bilirubin 0.3
AST 21
ALT 25
Alkaline Phosphatase 67
Vital Signs:
Vital Signs
Temp Pulse Resp BP Pulse Ox
97.5 F 58 16 136/61 98
05/09/24 07:00 05/09/24 07:00 05/09/24 07:00 05/09/24 07:00 05/09/24 07:00
I&O
05/08/24 05/09/24 05/10/24
06:59 06:59 06:59
Intake Total 1034 / 1034
Balance 1034 / 1034
Review of Systems
-
History Source: Patient
All other systems: Reviewed and negative
Physical Exam
-
General: No Apparent Distress
HEENT: PERRLA
Respiratory: Clear to Auscultation; Negative Wheezes
Cardiac: Regular Rhythm and S1/S2
GI: Soft, Nontender and Other (incisions c/d/i)
Musculoskeletal: No Edema
Skin: Warm and Dry; Negative Rash
Neuro: AO x 3
Psych: Calm
Data Reviewed
-
Diagnostic Radiology: Report Reviewed by me
Labs: Labs Reviewed by me
--- NOTE | 2024-05-09 10:40 | W.DS.TRANS ---
DC Summary - Lab Analyst
-
Discharge Instructions:
Discharge Diagnosis/Procedures acute appendicitis status post
Diet Regular
Activity No strenuous activity
Additional Activity No lifting over 10 pounds
Driving Restrictions No driving for 1 week
Wound Care Do not pick at incisions. Allow glue to
naturally fall off. Okay to shower.
Instructions:
Stand-Alone Forms:
Changes to Home Medications: Yes
Discharge Medications:
DC Medications w/original date entered in [employer]
metformin 500 mg tablet 1,000 mg PO BID 01/15/19
amlodipine 5 mg tablet 5 mg PO DAILY 05/15/20
chlorthalidone 25 mg tablet 25 mg PO DAILY 05/15/20
ezetimibe 10 mg tablet 10 mg PO DAILY 05/15/20
ibuprofen 600 mg tablet 600 mg PO Q4HPRN PRN mild pain #0 tabs 05/09/24
tramadol 50 mg tablet 50 mg PO Q6HPRN PRN severe pain #5 tabs 05/09/24
Home Medication Changes
5 pills Tramadol PRN
Pending Results: No
[2024-05-09 11:04] VITALS: BP 110/63
--- NOTE | 2024-05-09 11:07 | CM ---
Met pt at bedside
Pt reports she lives with her in a 2 story home; no steps to enter, 16 steps to 2nd fl
Independent, active, driving
DME - none
SNF/HH - no past hx
will transport home
PCP - Alexandro Toribio
Pharm - [facility]
Plan - anticipate home no needs
--- NOTE | 2024-05-09 13:12 | W.DCSUMMARY ---
Discharge Summary
Discharge Data
Date of Admission: 05/08/24
Date of Discharge: 05/09/24
-
Pending Results: No
Hospital Course
Discharging Physician : Dr. Carmen Anderson
Disposition : Home
Primary care physician : Dr. Alexandro Toribio
Principal Discharge diagnosis : Acute Appendicitis s/p laparoscopic appendectomy
Hospital Course :
Ms. Juana Mederos is a 63 yo woman with hx nephrolithiasis, fatty liver, DM II presents to the ER with lower abdominal pain found to have acute appendicitis s/p lap appendectomy by Dr. Gardiner evening of admission. She is feeling well on day of
discharge, tolerating LRD. Discharged without need for further antibiotics.
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
Time spent on discharge was 31 minutes.
Important imaging findings :
CT A/P 05/08/24
IMPRESSION:
1. Acute uncomplicated appendicitis.
Procedure findings :
05/08/24
POSTOP DIAGNOSIS: Acute appendicitis.
PROCEDURE: Laparoscopic appendectomy.
Discharge Plan
-
Patient Disposition: Home (Routine Discharge)
Discharge Diagnosis/Procedures: acute appendicitis status post
Diet: Regular and Diabetic, Carb Controlled
Activity: No strenuous activity
Additional Activity: No lifting over 10 pounds
Driving Restrictions: No driving for 1 week
Wound Care: Do not pick at incisions. Allow glue to naturally fall off. Okay to shower.
Referrals:
Mansoor Gardiner MD [Active] - in two weeks
Alexandro Toribio MD [Family Provider] - in less than 1 week
Additional Discharge Medication Instructions: Hold Metformin until evening of 05/10 (48 hours post contrast given with CT scan)
Prescriptions:
New
tramadol 50 mg Tablet
50 mg PO Q6HPRN PRN (Reason: severe pain) Qty: 5 0RF
ibuprofen 600 mg Tablet
600 mg PO Q4HPRN PRN (Reason: mild pain) Qty: 0 0RF
Continued
chlorthalidone 25 MG tablet
25 mg PO DAILY
Patient Comments:
Take in the morning with food
amlodipine 5 MG tablet
5 mg PO DAILY
ezetimibe 10 MG tablet
10 mg PO DAILY
Held
metformin 500 MG tablet
1,000 mg PO BID
Hold Instructions: Resume on 05/10/24. resume evening 05/10
Discharge Orders:
Discharge Patient (As Directed); Ordered 05/09/24
Ordered By: Carmen Anderson
Discharge Date and Time
Discharge Date/Time: 05/09/24 11:42
Print Language: ANGUILLAN
== END 2024-05-09 11:42 | disposition home or self-care (01) | DRG 398 ==
LOC: 2 SOUTH 19:18
PROVIDERS: Emergency Medicine; ADMITTING PHYSICIAN Student in an Organized Health Care Education/Training Program; CONSULT PHYSICIAN Surgery; EMERGENCY PHYSICIAN Emergency Medicine; FAMILY PHYSICIAN Family Medicine
PROC: 0DTJ4ZZ Resection of Appendix, Percutaneous Endoscopic Approach (ICD-10-PCS; 2024-05-08)
DX: K35.80 Unspecified acute appendicitis (principal); I47.10 Supraventricular tachycardia, unspecified; K76.0 Fatty (change of) liver, not elsewhere classified; E11.9 Type 2 diabetes mellitus without complications; E78.00 Pure hypercholesterolemia, unspecified; G89.29 Other chronic pain; K66.0 Peritoneal adhesions (postprocedural) (postinfection); E78.5 Hyperlipidemia, unspecified; I10 Essential (primary) hypertension; Z66 Do not resuscitate; Z87.891 Personal history of nicotine dependence; Z87.442 Personal history of urinary calculi; Z88.5 Allergy status to narcotic agent; Z88.8 Allergy status to other drugs, medicaments and biological substances; Z88.6 Allergy status to analgesic agent; Z91.040 Latex allergy status; Z79.84 Long term (current) use of oral hypoglycemic drugs
CPT/HCPCS: 88304; 74177; 80053; 81003; 81015; 82962; 83690; 83735; 85025; 85610; 86850; 86900; 86901; 93005; 96361; 96365; 96375; 99285; C1776; Q9967

== ENCOUNTER → 2024-06-03 06:21 | Day surgery (SDC) | payer MEDICARE, OTHER, SELFPAY ==
[2024-06-03 07:09] LABS: Glucose - Point of Care 124 mg/dl (70-99)
== END ==
LOC: GI 06:21
PROVIDERS: ATTENDING PHYSICIAN Internal Medicine Gastroenterology
DX: Z12.11 Encounter for screening for malignant neoplasm of colon (principal); Z80.0 Family history of malignant neoplasm of digestive organs; K57.30 Diverticulosis of large intestine without perforation or abscess without bleeding; D12.0 Benign neoplasm of cecum; D12.3 Benign neoplasm of transverse colon
CPT/HCPCS: 45380; 88305; 82962

== ENCOUNTER → 2025-01-07 14:06 | Outpatient (REF) | payer MEDICARE, OTHER, SELFPAY | LOC: WDC 14:06 | PROVIDERS: ATTENDING PHYSICIAN Obstetrics & Gynecology; FAMILY PHYSICIAN Family Medicine | DX: Z12.31 Encounter for screening mammogram for malignant neoplasm of breast (principal) | CPT/HCPCS: 77063; 77067 ==

== ENCOUNTER → 2025-02-18 11:29 | Outpatient (REF) | payer MEDICARE, OTHER, SELFPAY | LOC: HWRAD 11:29 | PROVIDERS: ATTENDING PHYSICIAN Nurse Practitioner Family | DX: R10.9 Unspecified abdominal pain (principal) | CPT/HCPCS: 74018 ==

== ENCOUNTER → 2025-02-21 09:34 | Outpatient (REF) | payer MEDICARE, OTHER, SELFPAY | LOC: HWRAD 09:34 | PROVIDERS: ATTENDING PHYSICIAN Nurse Practitioner Family | DX: R10.9 Unspecified abdominal pain (principal) | CPT/HCPCS: 76775 ==

== ENCOUNTER 2025-03-02 14:22 | Emergency (ER) | payer MEDICARE, OTHER, SELFPAY ==
[2025-03-02 14:29] VITALS: BP 146/97
[2025-03-02 14:43] LABS: Hematocrit 42.2 % (37.0-47.0); Hemoglobin 15.0 g/dL (12.0-16.0); Mean Corp Hgb Conc. 35.5 g/dL (33.0-37.0); Mean Corpuscular Volume 85.9 fL (81.0-99.0); Nucleated Red Blood Cells % 0 %; Platelet Count 400 10^3/uL (130-400); Red Cell Dist. Width 12.4 % (11.5-14.5)
[2025-03-02 14:57] LABS: ALT (SGPT) 30 U/L (0-35); AST (SGOT) 31 U/L (14-36); Albumin 5.3 g/dl (3.5-5.0); Alkaline Phosphatase 63 U/L (38-126); Blood Urea Nitrogen 18 mg/dl (7-17); Calcium 10.3 mg/dl (8.4-10.2); Carbon Dioxide 24 mmol/L (22-30); Chloride 103 mmol/L (98-107); Glucose 126 mg/dl (70-99); Potassium 3.7 mmol/L (3.5-5.1); Sodium 136 mmol/L (135-145); Total Protein 7.8 g/dl (6.3-8.2); eGFR > 60.00
[2025-03-02 14:58] LABS: Urine Character Clear (Clear)
[2025-03-02 15:13] LABS: Urine Urothelial Cell 0-2 /LPF (FEW)
[2025-03-02] MEDS: ZOFRAN ODT (ORALLY DISINTEGRATING) 4 MG PO (16:39)
--- NOTE | 2025-03-02 18:10 | ED.GENMED ---
History of Present Illness
General
Chief Complaint: Flank Pain
Source: patient
Exam Limitations: none
Time Seen by Provider: 03/02/25 16:12
Nursing documentation reviewed up to this point in time: agreed with
History of Present Illness
History of Present Illness:
64 yo female w h/o HTN, HLD, diverticulitis, kidney stones with lithotripsy, NIDDM tubal ligation 1984, presents for history of intermittent abdominal pain and nausea persisting for several weeks, now presenting with a new and different pain. Last
night, the patient experienced pain radiating from the right flank to the shoulder, a symptom she never had before. The flank and shoulder pain initially subsided after she fell asleep, but recurred this morning, accompanied by shaking chills. The
patient has a baseline nausea and abdominal pain for the past month, saw PCP for this and has GI appt next month. Describes current pain as notably different, specifying, 'like kidney' pain through her back and up into her shoulder blade. Although
she has not vomited today, she feels very nauseous currently. The previous visit to her primary care provider led to abdominal imaging and a urinalysis, both showing no significant findings except for mild fatty liver changes, which the patient has
acknowledged as a known condition in her family. The patient denies fever but has experienced chills. Currently, the pain rates as a 5 on a scale of 0 to 10. She has not taken any medication for the pain due to caution and is not on blood thinners.
Past History
Past History
ED Past Medical History: Arrthythmia (SVT), HTN, Hypercholesterolemia, NIDDM and Other (diverticulitis; nephrolithiasis; cholelithiasis)
ED Past Surgical History: Other (Lasik surgery, radius surgery, tubal ligation, lithotripsy; ureteroscopy)
Social History
Tobacco: Former smoker
Alcohol: Occasional
Drug: None
Personal:
Living: with family
Employment: Employed
Review of Systems
Review of Systems
Allergies reviewed?: Yes
All Other Systems: ROS reviewed and negative except as documented in HPI and ROS
Constitutional: Denies fever
ABD/GI: Reports abdominal pain and nausea; Denies vomiting or diarrhea
: Reports flank pain (Right)
Phy Exam
Physical Exam
Physical Exam:
GENERAL: No acute distress. A&Ox3.
CONSTITUTIONAL: Afebrile.
EYES: clear, conjunctivae normal
ENMT: moist mucus membranes, Pharynx nl
RESPIRATORY: Regular respirations, nonlabored, lungs clear.
CARDIOVASCULAR: Regular rate and rhythm, no murmurs, no rubs.
GI: Soft, tender right upper quadrant, normal BS
MUSCULOSKELETAL: Moves with ease. Well perfused.
SKIN: Warm, dry, pink
PSYCH: Normal mood and affect. Well kept, interactive and appropriate
NEUROLOGIC: Awake, alert and oriented. No focal neurological deficits
Course
Orders/Labs/Results
Orders:
Orders
03/02/25 14:35
Complete Blood Count/With Diff Urgent
Comprehensive Metabolic Panel Urgent
03/02/25 14:40
Urinalysis Reflex To Culture Urgent
Date Specimen was Collected: 03/02/25
Time Specimen was Collected: 14:31
Urine Microscopic Reflex Cult Urgent
03/02/25 16:14
CT Abd/pel Without Iv Or Oral Urgent
Comment:
Reason For Exam: R flank and abd pain
03/02/25 16:22
Ondansetron Orally Disint [Zofran Odt (Orally Disintegrating)] 4 mg PO NOW STA
03/02/25 18:17
Ibuprofen [Motrin] 600 mg PO NOW STA
US Abdomen Limited Urgent
Reason For Exam: RUQ pain rad to back and shoulder, F/U GB FROM CT
Abnormal Lab Results
03/02/25 03/02/25
14:35 14:40
BUN 18 H mg/dl
(7-17)
Glucose 126 H mg/dl
(70-99)
Calcium 10.3 H mg/dl
(8.4-10.2)
Albumin 5.3 H g/dl
(3.5-5.0)
Urine Ketones 2+ A
(Negative)
Ur Occult Blood Reflex 1+ A
(Negative)
Urine RBC 3-6 A /HPF
(0-2)
Urine Bacteria (Reflex) Few A
(Negative)
03/02/25 14:35
03/02/25 14:35
Vital Signs
Initial and Last Documented VS:
Initial Vital Signs
Temp BP Pulse Ox
98.5 F 146/97 98
03/02/25 14:29 03/02/25 14:29 03/02/25 14:29
Last Documented Vital Signs
Temp Pulse Resp BP Pulse Ox
98.5 F 77 18 128/89 95
03/02/25 14:29 03/02/25 20:42 03/02/25 20:42 03/02/25 20:42 03/02/25 20:42
MDM/Problems Addressed
Differential Diagnosis Includes:
Acute cholecystitis, biliary colic, choledocholithiasis, kidney stone
MDM/Problems Addressed:
64 yo female w h/o HTN, HLD, diverticulitis, kidney stones with lithotripsy, NIDDM tubal ligation 1984, presents for history of intermittent abdominal pain and nausea persisting for several weeks, now presenting with a new and different pain. Last
night, the patient experienced pain radiating from the right flank to the shoulder, a symptom she never had before. The flank and shoulder pain initially subsided after she fell asleep, but recurred this morning, accompanied by shaking chills. The
patient has a baseline nausea and abdominal pain for the past month, saw PCP for this and has GI appt next month. Describes current pain as notably different, specifying, 'like kidney' pain through her back and up into her shoulder blade. Although
she has not vomited today, she feels very nauseous currently. The previous visit to her primary care provider led to abdominal imaging and a urinalysis, both showing no significant findings except for mild fatty liver changes, which the patient has
acknowledged as a known condition in her family. The patient denies fever but has experienced chills. Currently, the pain rates as a 5 on a scale of 0 to 10. She has not taken any medication for the pain due to caution and is not on blood thinners.
Record reviewed: Pt had renal US 02/21 showing hepatic steatosis, otherwise unremarkable
6:00 PM:
CBC normal
CMP normal
Urine 2+ ketones, 1+ occult blood, 3-6 RBCs otherwise negative
Abdominal/pelvis CT scan plain radiology report read: IMPRESSION:
Tiny nonobstructing renal calculi, bilaterally. Right renal cyst. No ureteral calculus. No hydronephrosis or obstructive uropathy.
No acute inflammatory process within the abdomen or pelvis.
Cholelithiasis without CT evidence of acute cholecystitis.
No bowel obstruction. Mild colonic fecal burden.
Results discussed with patient, copies of all results given to her to discuss with her doctor.
She remains moderately uncomfortable pain now 02/10, she typically takes Motrin so I ordered Motrin for her and we will get an abdominal ultrasound to look for gallbladder disease
8:15 PM:
Pt states she is feeling better after Ibuprofen pain now 10/11
Ultrasound radiology report read: FINDINGS/impression:
Ultrasound confirms large gallstone measuring 1.6 cm. Nonmobile. No gallbladder wall thickening. No pericholecystic fluid. Reportedly, the patient was given pain medication; this limits assessment of sonographic Buckley sign.
No bile duct dilatation. The common bile duct measures 5 mm.
The liver is normal in size. Mild fatty infiltration.
Unremarkable sonographic appearance of the pancreas.
No right hydronephrosis. Small right renal cyst. 1.4 cm.
History, exam and workup most consistent with biliary colic
She is feeling much better at this time and is comfortable going home
Referred to General Surgery to discuss
*Pulse Oximetry
SaO2: 98
Oxygen Mode of Delivery: Room air
Patient hypoxic: not evaluated
*Critical Care Note
Total Time (30-74mins, 75-104mins- exclusive of procedures): Not Applicable
ED Attending Note
-
Portions of this chart may have been created with voice recognition software.� Occasional wrong word or��sound alike� substitutions may have occurred due to the inherent limitations of voice recognition software.
Discharge Plan
Departure
Patient Disposition: Home (Routine Discharge)
Date of Disposition: 03/02/25
Time of Disposition: 20:29
Patient with high blood pressure during this ER visit?: No
Condition: Good
Discharge Problem:
Abdominal pain, Biliary colic
Instructions: Gallstones - ED discharge instructions
Prescriptions:
New
tramadol 50 mg tablet
50 mg PO Q8H PRN (Reason: Pain) Qty: 10 0RF
No Action
metformin 500 MG tablet
1,000 mg PO BID
chlorthalidone 25 MG tablet
25 mg PO DAILY
Patient Comments:
Take in the morning with food
amlodipine 5 MG tablet
5 mg PO DAILY
ezetimibe 10 MG tablet
10 mg PO DAILY
tramadol 50 mg Tablet
50 mg PO Q6HPRN PRN (Reason: severe pain) Qty: 5 0RF
ibuprofen 600 mg Tablet
600 mg PO Q4HPRN PRN (Reason: mild pain) Qty: 0 0RF
Referrals:
Michael Azevedo MD [Active, Surgical] - Next open appointment
Alexandro Toriboi MD [Family Provider, Family Practice]
Activity Restrictions/Additional Instructions:
As we discussed, your workup here today shows nothing worrisome.
You do have a pretty good sized gallstone and I believe you are experiencing 'biliary colic.'
Since the ibuprofen works, continue 600 mg every 6 hours as needed for pain.
Call the surgeons office tomorrow and make next available appointment.
I sent a prescription to your pharmacy for tramadol to use if the ibuprofen is not helping your pain.
Return here immediately for fever, repeated vomiting, worsening abdominal pain or feeling sicker in any way.
Interventions
Interventions:
*Risk Screen - Suicide Last Done: 03/02/25 14:29
*General Assessment Last Done: 03/02/25 14:29
*Neglect/Abuse Screening Last Done: 03/02/25 14:29
*ED- Fall Risk Assessment Last Done: 03/02/25 14:29
*ED COVID-19 Vaccine History Last Done: 03/02/25 14:29
*Nursing Disposition Last Done: 03/02/25 20:43
CH-Wwruwt-Dmbuqphyne Assessment Last Done: 03/02/25 16:15
ED-Female Genitourinary Assessment Last Done: 03/02/25 16:15
ED-Musculoskeletal Assessment Last Done: 03/02/25 16:15
Discharge Date and Time
Discharge Date/Time: 03/02/25 20:43
Print Language: GREEK
[2025-03-02] MEDS: MOTRIN 600 MG PO (18:19)
[2025-03-02 18:20] VITALS: BP 127/79
[2025-03-02 20:42] VITALS: BP 128/89
== END 2025-03-02 20:43 | disposition home or self-care (01) ==
LOC: EMR 14:22
PROVIDERS: EMERGENCY PHYSICIAN Emergency Medicine; FAMILY PHYSICIAN Family Medicine
DX: K80.70 Calculus of gallbladder and bile duct without cholecystitis without obstruction (principal); N20.0 Calculus of kidney; N28.1 Cyst of kidney, acquired; E78.00 Pure hypercholesterolemia, unspecified; E11.9 Type 2 diabetes mellitus without complications; I10 Essential (primary) hypertension; Z87.891 Personal history of nicotine dependence
CPT/HCPCS: 99284; 74176; 76705; 80053; 81003; 81015; 85025

== ENCOUNTER 2025-04-04 16:02 | Inpatient (IN) | payer MEDICARE, OTHER, SELFPAY ==
[2025-04-03] VITALS (8 sets, daily range): BP systolic 122–173; BP diastolic 64–94; BMI 28.0; BMI 27.2
--- NOTE | 2025-04-03 14:35 | ED.GENMED ---
History of Present Illness
General
Chief Complaint: Skin Problem
Time Seen by Provider: 04/03/25 14:20
History of Present Illness
History of Present Illness:
64-year-old female presents the emergency department for evaluation of persistent nonresolving abdominal pain, she was diagnosed with cholelithiasis 1 month ago by ultrasound and imaging showed a 1.6 cm nonmobile gallstone. She followed up as an
outpatient with surgery and is scheduled for a cholecystectomy in May. States the pain is worsening and she is having difficulty eating as a result. She also notes a palpable mass to the left upper quadrant and generalized itching that started
3 days ago. Denies dark urine or noah colored stool, denies any rashes. No new soaps or topical products
Past History
Past History
ED Past Medical History: Arrthythmia (SVT), HTN, Hypercholesterolemia, NIDDM and Other (diverticulitis; nephrolithiasis; cholelithiasis)
ED Past Surgical History: Other (Lasik surgery, radius surgery, tubal ligation, lithotripsy; ureteroscopy)
Social History
Tobacco: Former smoker
Alcohol: Occasional
Drug: None
Personal:
Living: with family
Employment: Employed
Review of Systems
Review of Systems
Allergies reviewed?: Yes
All Other Systems: ROS reviewed and negative except as documented in HPI and ROS
Phy Exam
Physical Exam
Physical Exam:
GEN: Well appearing, NAD, WDWN
HEENT: Oral mucosa moist, no scleral icterus
Cardiac: Regular rate
Lung: No respiratory distress, no tachypnea
Abdomen: Tenderness to the epigastrium and right upper quadrant with a negative Buckley sign, no palpable mass noted to the left upper quadrant
MSK: No gross deformity or injuries
Skin: Good color, no pallor or jaundice, no rashes
Neuro: AO x3, moves all extremities freely
Psych: Calm, cooperative
Course
Orders/Labs/Results
Orders:
Orders
04/03/25 14:34
US Abdomen Limited Urgent
Comment:
Reason For Exam: LUQ pain/palpable mass
04/03/25 14:40
Complete Blood Count/With Diff Urgent
Comprehensive Metabolic Panel Urgent
Lipase Urgent
04/03/25 14:49
Ondansetron Orally Disint [Zofran Odt (Orally Disintegrating)] 4 mg PO NOW STA
04/03/25 14:53
Ketorolac [Toradol] 15 mg IV NOW STA
Ondansetron Injectable [Zofran] 4 mg IV NOW STA
04/03/25 16:19
HYDROmorphone [Dilaudid] 0.5 mg IV NOW STA
04/03/25 16:38
Piperacillin/Tazo 3.375 Gram [Zosyn] 3.375 gram in 50 ml IV NOW
04/03/25 17:08
CT Abd/pel W Iv And Oral Contr Urgent
Comment:
Reason For Exam: epigastric/ruq abd pain. gallstones. nausea.
Iohexol [Omnipaque] See Protocol PO NOW STA
04/03/25 17:09
Admit/Transfer Patient As Directed
Co-Sign Provider:
Level of Care: Observation services
Assign to:: Medical/Surgical
Physician / Group: hawkins/hospitalist
Diagnosis: abd pain
Code Status As Directed
Resuscitation Status: Full Code
PRN Pain Medication Management As Directed
May give lesser potent ordered pain med per pt: Yes
preference::
Protocol:: Medication orders for pain may be administered in a
manner that supports deferring to patient preference
when the pt is:
- Requesting an ordered lesser potent pain medication.
Least to most potent pain medications are defined
as: acetaminophen < NSAID < tramadol < opioids
(morphine, oxycodone, hydromorphone).
- Requesting a lesser dose of the same medication IF
ORDERED.
- Requesting a less intrusive route of administration
if both routes are prescribed by the provider (PO <
IV).
Abnormal Lab Results
04/03/25
14:40
Chloride 108 H mmol/L
(98-107)
04/03/25 14:40
04/03/25 14:40
Vital Signs
Initial and Last Documented VS:
Initial Vital Signs
Temp Pulse Resp BP Pulse Ox
98.4 F 107 18 173/94 99
04/03/25 13:32 04/03/25 13:32 04/03/25 13:32 04/03/25 13:32 04/03/25 13:32
Last Documented Vital Signs
Temp Pulse Resp BP Pulse Ox
98.4 F 107 18 132/82 99
04/03/25 13:32 04/03/25 13:32 04/03/25 13:32 04/03/25 17:00 04/03/25 14:35
MDM/Problems Addressed
MDM/Problems Addressed:
Unclear cause of the patient's itching symptoms however given her worsening biliary colic we will admit to the hospitalist service for surgical consultation
*Pulse Oximetry
SaO2: 99
Oxygen Mode of Delivery: Room air
Patient hypoxic: no
*Critical Care Note
Total Time (30-74mins, 75-104mins- exclusive of procedures): Not Applicable
ED Attending Note
-
Portions of this chart may have been created with voice recognition software.� Occasional wrong word or��sound alike� substitutions may have occurred due to the inherent limitations of voice recognition software.
Discharge Plan
Departure
Patient Disposition: Admit
Date of Disposition: 04/03/25
Time of Disposition: 16:39
Admit to: Med/Surg
Presentation/result/management discussed w/ accepting MD/DO: Hospitalist
Discharge Problem:
Biliary colic
Interventions
Interventions:
*Risk Screen - Suicide Last Done: 04/03/25 13:32
*General Assessment Last Done: 04/03/25 14:38
*Neglect/Abuse Screening Last Done: 04/03/25 14:38
*ED- Fall Risk Assessment Last Done: 04/03/25 14:38
*ED COVID-19 Vaccine History Last Done: 04/03/25 14:38
[2025-04-03] MEDS: TORADOL 15 MG IV (14:56)
[2025-04-03] MEDS: ZOFRAN 4 MG IV (14:56)
[2025-04-03 15:03] LABS: Hematocrit 41.8 % (37.0-47.0); Hemoglobin 14.4 g/dL (12.0-16.0); Mean Corp Hgb Conc. 34.4 g/dL (33.0-37.0); Mean Corpuscular Volume 89.7 fL (81.0-99.0); Nucleated Red Blood Cells % 0 %; Platelet Count 348 10^3/uL (130-400); Red Cell Dist. Width 13.2 % (11.5-14.5)
[2025-04-03 15:11] LABS: ALT (SGPT) 20 U/L (0-35); AST (SGOT) 22 U/L (14-36); Albumin 4.9 g/dl (3.5-5.0); Alkaline Phosphatase 85 U/L (38-126); Blood Urea Nitrogen 11 mg/dl (7-17); Calcium 9.9 mg/dl (8.4-10.2); Carbon Dioxide 26 mmol/L (22-30); Chloride 108 mmol/L (98-107); Estimated Creatinine Clearance 94 ml/min; Glucose 90 mg/dl (70-99); Lipase 65 U/L (23-300); Potassium 3.9 mmol/L (3.5-5.1); Sodium 141 mmol/L (135-145); Total Protein 7.1 g/dl (6.3-8.2); eGFR > 60.00
[2025-04-03] MEDS: DILAUDID 0.5 MG IV ×2 (16:23→23:11)
[2025-04-03] MEDS: ZOSYN 50 IV (16:49)
--- NOTE | 2025-04-03 16:59 | HPS.HSE ---
Family Physician
-
Family Physician: SOFIA Bailey
Chief Complaint
-
Abdominal pain
History of Present Illness
64-year-old female who is presenting from home with persistent bilateral upper quadrant abdominal pain. States abdominal pain has been chronic in nature. That has been ongoing since end of January or early February. States she came into the ER and
underwent abdominal imaging. She was told she has gallstones. Patient followed up outpatient with general surgery with plan for cholecystectomy in May. Patient states her persistent abdominal pain. States the pain is not associated with
meals. States of nausea. Denies any vomiting. States she has lost significant amount of weight. Appetite has decreased. States she has been drinking water. Denies any lightheaded or dizziness. States of fevers and chills at home. States her
pain is uncontrollable. She was prescribed tramadol for pain which was helping at times to alleviate it. However the pain worsened especially epigastric and right upper quadrant region with radiation to shoulder at times. Denies any diarrhea.
States last bowel movement was few days ago. Denies any problems with urination. Also stating of pruritus bilateral upper extremity and in the trunk area. Denies any recent changes in laundry detergent or working outside or any recent tick bite.
Medical History
Past Medical History
Past Medical History: Reports Other
Additional Past Medical History:
Hypertension
Diverticulosis
Hepatic steatosis
Diabetes mellitus
Hyperlipidemia
Past Surgical History: Reports Other
Additional Past Surgical History:
Right wrist ORIF
Lithotripsy
Right knee replacement
Appendectomy
Cataract surgery
Social History
Tobacco: Non-smoker
Personal:
Living: With Family
Family History
Family History: CAD and Other (Father cirrhosis, CVA.Mother cardiac history)
Allergies / Home Medications
Allergies reflects when Allergies were last updated in [email or web address].
Home Medications with original date entered in [email or web address]
Allergy/Medication List:
Medications on admission are unable to be verified or confirmed at this time.
Review of Systems
-
History Source: Patient
Constitutional: Reports Fever and Weight Loss
EENT: Reports No Symptoms
Respiratory: Reports No Symptoms
Cardiac: Reports No Symptoms
Abdomen/GI: Reports See HPI
: Reports No Symptoms
Musculoskeletal: Reports No Symptoms
Skin: Reports Itching
Neurological: Reports No Symptoms
Endocrine: Reports No Symptoms
Hematologic/Lymphatic: Reports No Symptoms
Psych: Reports No Symptoms
Physical Exam
Vital Signs
Vital Signs
Temp Pulse Resp BP Pulse Ox
98.4 F 107 18 128/67 99
04/03/25 13:32 04/03/25 13:32 04/03/25 13:32 04/03/25 16:18 04/03/25 14:35
Physical Exam
General: Well Developed, Well Nourished and No Apparent Distress
HEENT: NormoCephalic, Moist mucous membranes and Atraumatic
Respiratory: Clear
Cardiac: S1/S2 and Regular Rhythm; No Murmur or Rub
GI: Soft, Non Distended, Normal Bowel Sounds and Tender (Epigastric and right upper quadrant); No Organomegaly
Rectal: Deferred by Provider
Musculoskeletal: No Clubbing, No Cyanosis and No Edema
Skin: No Rash
Neuro: Awake, Alert, Oriented, AO x 3, No Motor Deficits and Nonfocal/grossly intact
Psych: Calm
Laboratory Results
-
04/03/25 14:40
04/03/25 14:40
Laboratory Results
Total Bilirubin 0.5 mg/dl (0.2-1.3) 04/03/25 14:40
AST 22 U/L (14-36) 04/03/25 14:40
ALT 20 U/L (0-35) 04/03/25 14:40
Alkaline Phosphatase 85 U/L (38-126) 04/03/25 14:40
Lipase 65 U/L (23-300) 04/03/25 14:40
Data Reviewed
-
Ultrasound: Report Reviewed by me and Discussed with Patient
Lab Data: Labs Reviewed by me and Discussed with Patient
Impression/Plan
-
#Epigastric/Right upper quadrant epigastric abdominal pain likely secondary to peptic ulcer versus biliary colic vs. hepatic steaotosis
Check CT abdomen pelvis with p.o. and IV contrast
Afebrile. WBC normal.
AST ALT T. bili normal.
Clears for now. Start IV fluids.
Dose of Zosyn in the ER can hold off further antibiotics for now
ER discussed with general surgery.
Pain control. Antinausea meds.
# Pruritus generalized
No visible rash noted. Denies any changes in laundry detergent. Denies working in the yard
Atarax if needed.
#Primary hypertension
Continue home meds with hold parameters
#diabetes mellitus
Insulin sliding scale and Accu-Cheks
Update A1c
#Hyperlipidemia
Continue home meds once med rec confirmed
#Hepatic steatosis
Follow-up outpatient with GI
DVT prophylaxis Lovenox
Full code
Awaiting med rec.
I spent a total of 80 minutes with the patient or on the floor. More than 50% of this time involved counseling and coordination of care.
[2025-04-03] MEDS: OMNIPAQUE 50 ML PO (17:21)
--- NOTE | 2025-04-03 20:00 | PTCARENOTE ---
Pt ambulated to bed w/o complication. Arrived to 2S from ED at 1999. Pt AAOx3, vss. Admission assessment completed. IVF initiated per order. C/o pain see OCT. Clear liquid diet, NPO @ midnight for possible OR tomorrow. Oriented to call you and
room, call you within reach, bed locked and in lowest position. Plan of care reviewed with pt and spouse at bedside. Care ongoing.
[2025-04-03] MEDS: LR 1000 IV (20:23)
[2025-04-03] MEDS: ULTRAM 50 MG PO (20:24)
[2025-04-03] MEDS: LOVENOX 40 MG SC (20:24)
[2025-04-03] MEDS: TYLENOL 650 MG PO (22:52)
[2025-04-03 23:52] LABS: Glucose - Point of Care 115 mg/dl (70-99)
[2025-04-04] VITALS (11 sets, daily range): BP systolic 129–147; BP diastolic 71–89
[2025-04-04] MEDS: TORADOL 15 MG IV (00:19)
[2025-04-04] MEDS: LR 1000 IV (05:21)
[2025-04-04 05:53] LABS: Glucose - Point of Care 137 mg/dl (70-99)
[2025-04-04] MEDS: PROTONIX 40 MG PO (07:50)
[2025-04-04] MEDS: ULTRAM 50 MG PO ×2 (07:50→17:05)
[2025-04-04 08:04] LABS: Hematocrit 44.5 % (37.0-47.0); Hemoglobin 14.8 g/dL (12.0-16.0); Mean Corp Hgb Conc. 33.3 g/dL (33.0-37.0); Mean Corpuscular Volume 91.4 fL (81.0-99.0); Nucleated Red Blood Cells % 0 %; Platelet Count 313 10^3/uL (130-400); Red Cell Dist. Width 13.2 % (11.5-14.5)
--- NOTE | 2025-04-04 08:06 | CON.GS ---
Consultation
-
Date/Time Consultation Requested: 04/03/2025 8 PM
Date/Time Consultation Performed: 04/04/2025 8 AM
Requesting Provider: Dr. Walter
Performing Provider: Dr. Holt
Reason for Consultation: Right upper quadrant.
Medical History
-
Chief Complaint: Right upper quadrant
History of Present Illness:
This is a 64-year-old female who presents with a 2-day history of worsening postprandial right upper quadrant pain in setting of known gallbladder disease and similar symptoms that began in February. She was seen by Dr. Magana as an outpatient and was
scheduled for surgery in May however pain became unbearable over the past 2 days which prompted her to come into our ED for evaluation. The patient denies Fever, Chest Pain, Shortness Of Breath, Nausea, Vomiting, changes in urinary and bowel
habits, unintentional weight loss, jaundice, icterus, acolic stools.
Her CT scan here demonstrates a distended gallbladder. And a previous ultrasound shows a stone of 1.4 cm
Past Medical History
Past Medical History: Reviewed & Noncontributory
Past Surgical History: Other (Appendectomy)
Social History
Tobacco: Non-Smoker
Alcohol: None
Drug: None
Personal:
Living: With Family
Family History
Family History: Reviewed & Not Pertinent
Allergies / Home Medications
Allergy/AdvReac Type Severity Reaction Status Date / Time
acetaminophen (From Percocet) Allergy Nausea Verified 05/08/24 14:36
diltiazem (From Cardizem) Allergy dizzy Verified 05/08/24 14:36
latex Allergy severe Verified 05/08/24 14:36
itching,
swelling,
redness
metoprolol Allergy dizzy Verified 05/08/24 14:36
morphine Allergy vomit Verified 05/08/24 14:36
oxycodone (From Percocet) Allergy Nausea Verified 05/08/24 14:36
Vgypeor-DYS-EyA Reductase Allergy muscle Verified 05/08/24 14:36
Inhibitor (Ivfeadc-Oed-Yrt cramping
Reductase Inhibitor)
�Medication �Instructions �Recorded �Confirmed �Type
metformin 500 mg tablet 1,000 mg PO BID Diabetes 01/15/19 04/03/25 History
Held on 05/09/24.
Instructions: Resume on
05/10/24. resume evening 05/10
amlodipine 5 mg tablet 5 mg PO DAILY Blood Pressure 05/15/20 04/03/25 History
chlorthalidone 25 mg tablet 25 mg PO DAILY Blood Pressure 05/15/20 04/03/25 History
ezetimibe 10 mg tablet 10 mg PO DAILY High Cholesterol 05/15/20 04/03/25 History
ibuprofen 600 mg tablet 600 mg PO Q4HPRN PRN mild pain #0 05/09/24 04/03/25 Rx
tabs
tramadol 50 mg tablet 50 mg PO Q6HPRN PRN severe pain #5 05/09/24 04/03/25 Rx
tabs
tramadol 50 mg tablet 50 mg PO Q8H PRN Pain #10 tabs 03/02/25 04/03/25 Rx
Review of Systems
-
All other systems: Negative unless noted
A 10 point review of systems was completed, and was negative except as per HPI.
Physical Exam
Vital Signs
Temp Pulse Resp BP Pulse Ox
97.7 F 62 18 147/84 96
04/04/25 07:15 04/04/25 07:15 04/04/25 07:15 04/04/25 07:15 04/04/25 07:15
04/03/25 04/04/25 04/05/25
06:59 06:59 06:59
Actual Weight 74.117 kg
Body Mass Index (BMI) 27.2
Lab Results
04/04/25 07:34
WBC 8.9 10^3/uL (4.8-10.8) 04/04/25 07:34
Hgb 14.8 g/dL (12.0-16.0) 04/04/25 07:34
Hct 44.5 % (37.0-47.0) 04/04/25 07:34
Plt Count 313 10^3/uL (130-400) 04/04/25 07:34
Abs Immat Gran (auto) 0.0 10^3/uL (0-0.05) 04/04/25 07:34
Neutrophils % 62.0 % (42.2-75.2) 04/04/25 07:34
Physical Exam
General: Well Developed
HEENT: Anicteric
Respiratory: Non Labored Respirations
GI: Tender
Neuro: AO x 3
Data Reviewed
-
CT Scan: Image Personally Visualized and interpreted, Report Reviewed by me, Discussed with Patient and Discussed with Family
Ultrasound: Image Personally Visualized and interpreted, Report Reviewed by me and Discussed with Family
Labs: Labs Reviewed by me, Discussed with Patient and Discussed with Family
Total Time Spent with Patient (in minutes): 30
Assessment / Plan
-
This is a 64-year-old female with a history of a prior laparoscopic appendectomy (2023, Dr. Gardiner) who presents with a 2-day history of postprandial right upper quadrant pain. Exam, imaging, blood work all consistent with acute calculus
cholecystitis.
Will plan for a laparoscopic cholecystectomy in the OR today.
Risks/Benefits/Alternatives, expected postoperative course and possible complications (bleeding, infection, injury to surrounding structures, acute/chronic pain) discussed at length. Patient wishes to proceed with surgery. All questions answered.
Consent obtained.
I spent 75 minutes in total for the care of this patient today including direct patient care and counseling, reviewing labs, imaging, coordination of care, as well as documentation.
--- NOTE | 2025-04-04 08:13 | W.SUR.PREOP ---
Pre-Operative Surgical Note
-
I have examined this patient prior to the performance of the scheduled procedure.
The patient's condition is unchanged from the time of the current History and
Physical and the patient is able to undergo the scheduled procedure.
[2025-04-04 08:36] LABS: ALT (SGPT) 37 U/L (0-35); AST (SGOT) 40 U/L (14-36); Albumin 4.9 g/dl (3.5-5.0); Alkaline Phosphatase 69 U/L (38-126); Blood Urea Nitrogen 8 mg/dl (7-17); Calcium 9.8 mg/dl (8.4-10.2); Carbon Dioxide 24 mmol/L (22-30); Chloride 106 mmol/L (98-107); Estimated Creatinine Clearance 93 ml/min; Glucose 120 mg/dl (70-99); Potassium 4.2 mmol/L (3.5-5.1); Sodium 139 mmol/L (135-145); Total Protein 7.3 g/dl (6.3-8.2); eGFR > 60.00
--- NOTE | 2025-04-04 08:44 | CM ---
CM reviewed chart. Pt has no skilled needs noted at this time.
Please consult CM/SW should discharge planning needs changed.
CM/SW will continue to follow to ensure a safe and timely dc.
[2025-04-04] MEDS: ZOSYN 50 IV (09:11)
--- NOTE | 2025-04-04 12:05 | W.IMMPOSTOP ---
Surgical Immed Post Op Note
-
Primary Surgeon: Kemal Holt MD
Assisting Surgeon: None
Pre-op Diagnosis: Acute cholecystitis, fatty liver disease
Post-op Diagnosis: Same
Procedure Performed:
1. Laparoscopic cholecystectomy with cholangiogram
2. Liver biopsy
Anesthesia Type: General
Specimen / Cultures:
1. Gallbladder and contents
2. Liver biopsy
Estimated Blood Loss: 11 cc
Complications: None
Operative Findings: Acutely inflamed and distended gallbladder, decompressed prior to a fairly routine cholecystectomy. Critical view of safety obtained prior to a cholangiogram which demonstrated normal biliary anatomy and no distal filling
defects. Duct ligated with a clip followed by 0 PDS Endoloop. There was some spillage of bile but no stones.
POST OP PLAN:
Imaging: None
Labs: Routine AM
Diet: Advance to Regular as tolerated
Analgesia: Tylenol 650mg q6 [place], Dilaudid 0.5mg q2h PRN
Neuro/vascular checks: Per unit protocol
AC/AP: Hold Therapeutic AC, Ok for DVT PPx
Activity: Ad Domenica
Wound/Incisions/Drains: Routine
Abx: can continue antibiotics while in the hospital, not needed on discharge
Dispo: RNF, can DC home today pending pain control
--- NOTE | 2025-04-04 12:09 | OR.RPT ---
Operative Report
Operative Report
Patient Name: Juana Mederos
: 1960
Date of Operation: 04/04/2025
Preoperative Diagnosis: Acute cholecystitis, fatty liver disease
Postoperative Diagnosis: Same
Procedure(s):
1. Laparoscopic Cholecystectomy with Cholangiogram
2. Liver biopsy
Surgeon(s):
Dr. Holt
Inspector Electromechanical(s):
None
Anesthesia: General
Estimated Blood Loss: 11 cc
Urine Output: None
Drains/Lines/Implants: None
Specimens:
1. Gallbladder and contents
2. Liver biopsy
HPI/Surgical Indications:
This is a 64-year-old female with a history of an appendectomy who presents with 2 days of right upper quadrant postprandial abdominal pain, in the setting of known gallbladder disease and biliary colic. Exam, labs and imaging are consistent with
acute cholecystitis. Risks/Benefits/Alternatives were discussed at length, and the patient agreed to proceed with surgery.
Operative Findings: Acutely inflamed and distended gallbladder, decompressed prior to a fairly routine cholecystectomy. Critical view of safety obtained prior to a cholangiogram which demonstrated normal biliary anatomy and no distal filling
defects. Duct ligated with a clip followed by 0 PDS Endoloop. There was some spillage of bile but no stones.
Procedure Description:
The patient was brought to the Operating Room and placed in the supine position with one arm tucked. Following uneventful induction of general endotracheal anesthesia, an orogastric tube was placed. The abdomen was prepped and draped in the usual
sterile fashion. A timeout was performed confirming the procedure, consent, and that IV antibiotics were infused and sequential compression devices were confirmed to be on.. The abdomen was entered using a left subcostal Veress technique which
required a single pass followed by a 5 mm right upper quadrant Optiview trocar. Pneumoperitoneum to 12 mmHg pressure was obtained without difficulty and we confirmed that no injury had occurred during our entry. The patient was positioned in
reverse Trendelenberg and rotated with the right side up slightly. Two 5 mm trocars were then placed along the right subcostal margin, followed by a 12 mm port in the epigastrium. The gallbladder was distended so was emptied using a decompressing
needle through the fundus of the gallbladder with evacuation of hydrops before A locking grasping forceps was placed on the fundus of the gallbladder where it was then retracted cephalad and to the right. Using appropriate grasping instruments, the
peritoneum overlying the triangle of Calot was incised and extended superiorly on both the anterior and posterior gallbladder mendez. The infundibulum was dissected off the cystic plate. The cystic triangle was dissected until a critical view of
safety was achieved. The cystic artery was medialized, dissected and controlled with 2 proximal clips and 1 distal. The cystic duct/gallbladder junction in turn was identified, dissected circumferentially and a clip was placed. A ductotomy was made
and a cholangiocatheter on an Gaspar clamp was inserted into the cystic duct. A C-arm was draped and brought into the field. An intra-operative cholangiogram was performed and was noted to have:
No filling defects in the biliary tree
No significant biliary dilation
Brisk flow of contrast into the duodenum
Normal biliary anatomy
The catheter was then removed and the cystic duct was controlled with a clip followed by 0 PDS Endoloop. After ensuring both the artery and duct were divided, the gallbladder was freed from the liver using electrocautery. There was some spillage
of bile, but no spillage of stones. The gallbladder bed was inspected and excellent hemostasis was obtained. The gallbladder was extracted through the 12 mm trocar site using an endocatch bag. The abdomen was again irrigated and excellent
hemostasis was assured. All remaining trocars were then removed and the pneumoperitoneum was evacuated. The 12 mm trocar site was closed using 0 PDS suture. All trocar sites were closed at the skin level using 4-0 Monocryl followed by Dermabond.
Overall, the patient tolerated the procedure well and was taken to the Recovery Room postoperatively in stable condition.
I was the attending physician and performed the procedure with no assistance. I was present for all portions of the case.
Kemal Holt MD
[2025-04-04] MEDS: DILAUDID 0.25 MG IV ×2 (12:38→12:56)
[2025-04-04] MEDS: DILAUDID 0.5 MG IV (13:07)
[2025-04-04 13:30] LABS: Glucose - Point of Care 159 mg/dl (70-99)
--- NOTE | 2025-04-04 13:41 | W.PN.HOSP.TC ---
Today's Communication/Plan
-
Resume diet
Possible discharge
Assessment / Plan
Assessment / Plan
Gen-AAOx3, mild distress due to pain
HEENT-NC, AT, anicteric, clear oral mm
Neck-supple
CV-reg, no M, +S1/S2
Lungs-clear B/L
Abd-tender right upper quadrant, surgical sites intact without drainage
Ext-no edema
Musculoskeletal-no cyanosis, clubbing
Skin-warm and dry
Neuro-grossly non-focal
Psych-calm, cooperative
Acute calculus cholecystitis -underwent successful laparoscopic cholecystectomy 04/04. Diet resumed. Continue analgesics. Can discontinue antibiotics on discharge.
No signs or symptoms of sepsis.
DM 2 without hyperglycemia -glucose 120 this morning. Hold metformin for 48 hours given IV contrast exposure. Discussed with patient.
Essential hypertension -amlodipine, chlorthalidone.
Hyperlipidemia
Full code
Dispo -possible discharge later today or tomorrow morning if stable. Discussed with surgical service.
Updated patient's at the bedside.
Anticipated Discharge: Within 24 hours
Subjective/Interval History
-
Date of Service: April 04, 2025
Patient seen and examined. Complaining of right upper quadrant pain.
Objective Data
-
Labs:
Laboratory Results
04/04/25
07:34
WBC 8.9
Hgb 14.8
Hct 44.5
Plt Count 313
Sodium 139
Potassium 4.2
Chloride 106
Carbon Dioxide 24
BUN 8
Creatinine 0.5 L
Glucose 120 H
Calcium 9.8
Total Bilirubin 0.7
AST 40 H
ALT 37 H
Alkaline Phosphatase 69
Vital Signs:
Vital Signs
Temp Pulse Resp BP Pulse Ox
97.9 F 90 16 147/87 98
04/04/25 13:24 04/04/25 13:24 04/04/25 13:24 04/04/25 13:24 04/04/25 13:24
I&O
04/03/25 04/04/25 04/05/25
06:59 06:59 06:59
Intake Total 600 / 600 500 / 500
Balance 600 / 600 500 / 500
Review of Systems
-
History Source: Patient
All other systems: Reviewed and negative
--- NOTE | 2025-04-04 17:46 | W.DS.TRANS ---
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
-
Discharge Instructions:
Discharge Diagnosis/Procedures Acute cholecystitis. Laparoscopic
cholecystectomy with cholangiogram.
Diet No restrictions
Activity No strenuous activity
Driving Restrictions As prior to admission
Bathing Restrictions OK to Shower
Instructions:
Stand-Alone Forms:
Changes to Home Medications: No
Discharge Medications:
DC Medications w/original date entered in [employer]
metformin 500 mg tablet 1,000 mg PO BID Diabetes 01/15/19
Held on 04/04/25. Instructions: Resume on 04/06/25.
amlodipine 5 mg tablet 5 mg PO DAILY Blood Pressure 05/15/20
chlorthalidone 25 mg tablet 25 mg PO DAILY Blood Pressure 05/15/20
ezetimibe 10 mg tablet 10 mg PO DAILY High Cholesterol 05/15/20
ibuprofen 600 mg tablet 600 mg PO Q4HPRN PRN mild pain #0 tabs 05/09/24
tramadol 50 mg tablet 50 mg PO Q6H PRN severe pain #20 tabs 04/04/25
Home Medication Changes
Pending Results: No
== END 2025-04-04 18:02 | disposition home or self-care (01) | DRG 419 ==
LOC: 2 SOUTH 16:02
PROVIDERS: Emergency Medicine; Internal Medicine; ADMITTING PHYSICIAN Hospitalist; ATTENDING PHYSICIAN Hospitalist; EMERGENCY PHYSICIAN Emergency Medicine; FAMILY PHYSICIAN Nurse Practitioner Family; OTHER PHYSICIAN Surgery
PROC: BF131ZZ Fluoroscopy of Gallbladder and Bile Ducts using Low Osmolar Contrast (ICD-10-PCS; 2025-04-04)
PROC: 0FB04ZX Excision of Liver, Percutaneous Endoscopic Approach, Diagnostic (ICD-10-PCS; 2025-04-04)
PROC: 0FT44ZZ Resection of Gallbladder, Percutaneous Endoscopic Approach (ICD-10-PCS; 2025-04-04)
DX: K80.00 Calculus of gallbladder with acute cholecystitis without obstruction (principal); L29.9 Pruritus, unspecified; E11.9 Type 2 diabetes mellitus without complications; K82.8 Other specified diseases of gallbladder; K76.0 Fatty (change of) liver, not elsewhere classified; E78.00 Pure hypercholesterolemia, unspecified; I10 Essential (primary) hypertension; G89.29 Other chronic pain; Z96.651 Presence of right artificial knee joint; Z82.3 Family history of stroke; Z82.49 Family history of ischemic heart disease and other diseases of the circulatory system; Z88.5 Allergy status to narcotic agent; Z88.8 Allergy status to other drugs, medicaments and biological substances; Z91.040 Latex allergy status; Z87.442 Personal history of urinary calculi; Z87.19 Personal history of other diseases of the digestive system; Z87.891 Personal history of nicotine dependence; Z79.84 Long term (current) use of oral hypoglycemic drugs
CPT/HCPCS: 74177; 74300; 76000; 76705; 80053; 82962; 83690; 85025; 88304; 88307; 88313; 96365; 96375; 99285; A4300; Q9967

== ENCOUNTER → 2025-04-27 14:22 | Outpatient (REF) | payer MEDICARE, OTHER, SELFPAY | LOC: HWRAD 14:22 | PROVIDERS: ATTENDING PHYSICIAN Internal Medicine Gastroenterology; FAMILY PHYSICIAN Nurse Practitioner Family | DX: R07.81 Pleurodynia (principal) | CPT/HCPCS: 71101 ==

== ENCOUNTER → 2025-05-05 07:09 | Outpatient (REF) | payer MEDICARE, OTHER, SELFPAY | LOC: RAD 07:09 | PROVIDERS: ATTENDING PHYSICIAN Internal Medicine Gastroenterology; FAMILY PHYSICIAN Nurse Practitioner Family | DX: R10.12 Left upper quadrant pain (principal) | CPT/HCPCS: 74160; Q9967 ==

== ENCOUNTER → 2025-06-28 11:42 | Outpatient (REF) | payer MEDICARE, OTHER, SELFPAY | LOC: HWRCS 11:42 | PROVIDERS: ATTENDING PHYSICIAN Internal Medicine Cardiovascular Disease; FAMILY PHYSICIAN Nurse Practitioner Family | DX: I51.7 Cardiomegaly (principal); I10 Essential (primary) hypertension | CPT/HCPCS: 93306 ==